=== PATIENT | male | born 1970 | race Hispanic/Latino ===

== ENCOUNTER 2021-06-08 11:50 | Emergency (ER) | payer OTHER ==
[2021-06-08] MEDS ORDERED: Lidocaine 1% (PF) 30 ML VIAL ONE (13:18)
== END 2021-06-08 13:46 | disposition home or self-care (01) ==
LOC: ERS 11:50
DX: S01.511A Laceration without foreign body of lip, initial encounter (principal); W22.8XXA Striking against or struck by other objects, initial encounter
CPT/HCPCS: 12011; J2001